=== PATIENT | male | born 1995 | race Two or more races ===

== ENCOUNTER 2018-07-11 12:22 | Emergency (ER) | payer MEDICAID ==
[~2018-07-11] VITALS: Ht 190.5 cm; Wt 76.7 kg
[2018-07-11 12:29] VITALS: BP 137/71
== END 2018-07-11 12:51 | disposition home or self-care (01) ==
LOC: ER 12:26
DX: N48.89 Other specified disorders of penis (principal); Z88.0 Allergy status to penicillin